=== PATIENT | female | born 1985 | race African-American/Black ===

== ENCOUNTER 2023-04-14 23:35 | Emergency (ER) | payer MEDICAID ==
[~2023-04-14] VITALS: Ht 157.5 cm; Wt 100.0 kg
[2023-04-14 23:48] VITALS: TEMP 98.6; O2SAT 100
[2023-04-15 01:11] LABS: CLARITY URINE CLOUDY (CLEAR); COLOR URINE YELLOW (YELLOW); GLUCOSE URINE NEGATIVE (NEGATIVE); KETONES URINE TRACE (NEGATIVE); LEUKOCYTE ESTERASE URINE NEGATIVE (NEGATIVE); NITRITE URINE POSITIVE (NEGATIVE); OCCULT BLOOD URINE TRACE (NEGATIVE); PROTEIN URINE NEGATIVE (NEGATIVE); SPECIFIC GRAVITY URINE 1.028 (1.005-1.030)
[2023-04-15 01:23] LABS: BACTERIA URINE 2+; RBC URINE 0-2 /hpf (0-2); SQUAMOUS EPITHELIAL CELL URINE 2+ /lpf (RARE/1+)
[2023-04-15] MEDS ORDERED: IBUP-2029 MT (01:44)
[2023-04-15] MEDS ORDERED: CEPH500C2 MT (01:44)
[2023-04-15] MEDS ORDERED: CEPHALEXIN 250MG CAPSULE PO ONE (01:45)
[2023-04-15] MEDS ORDERED: KETOROLAC 30MG/ML VIAL IM ONE (01:45)
[2023-04-15 01:57] VITALS: BP 178/101; PULSE 99; RESP 16
== END 2023-04-15 02:00 | disposition home or self-care (01) ==
LOC: ER 23:53
DX: N39.0 Urinary tract infection, site not specified (principal); I10 Essential (primary) hypertension
CPT/HCPCS: 99283; 81003; 81025; 96372; J1885; Z7610